=== PATIENT | female | born 1980 | race Hispanic/Latino ===

== ENCOUNTER → 2024-07-13 11:55 | Outpatient (REF) | payer OTHER, SELFPAY ==
[2024-07-13 12:53] LABS: Hematocrit 40.1 % (37.0-47.0); Hemoglobin 12.6 g/dL (12.0-16.0); Mean Corp Hgb Conc. 31.4 g/dL (33.0-37.0); Mean Corpuscular Hgb 26.3 pg (27.0-31.0); Mean Corpuscular Volume 83.5 fL (81.0-99.0); Mean Platelet Volume 10.9 fL (7.4-10.4); Platelet Count 297 10^3/uL (130-400); Red Cell Dist. Width 14.7 % (11.5-14.5); White Blood Cell Count 7.2 10^3/uL (4.8-10.8)
[2024-07-13 15:05] LABS: ALT (SGPT) 22 U/L (0-35); AST (SGOT) 21 U/L (14-36); Albumin 4.7 g/dl (3.5-5.0); Alkaline Phosphatase 83 U/L (38-126); Blood Urea Nitrogen 12 mg/dl (7-17); Calcium 9.7 mg/dl (8.4-10.2); Carbon Dioxide 24 mmol/L (22-30); Chloride 108 mmol/L (98-107); Glucose 95 mg/dl (70-99); HDL Cholesterol 46 mg/dl; LDL Cholesterol, Calculated 123 mg/dl; Potassium 5.1 mmol/L (3.5-5.1); Sodium 140 mmol/L (135-145); Total Bilirubin 0.3 mg/dl (0.2-1.3); Total Cholesterol 191 mg/dl (50-199); Total Protein 8.4 g/dl (6.3-8.2); Triglyceride 111 mg/dl (10-149); Very Low Density Lipoprotein 22 mg/dl (0-30); eGFR > 60.00
[2024-07-13 15:08] LABS: Vitamin D, 25-OH*** 36.6 ng/mL (30-80)
[2024-07-13 15:21] LABS: TSH Reflex To Free T4 3.89 uIU/ml (0.47-4.68)
[2024-07-15 05:35] LABS: H. pylori Breath Test Positive (Negative)
== END ==
LOC: CLINIC 11:55
PROVIDERS: ATTENDING PHYSICIAN Nurse Practitioner Adult Health
DX: Z00.00 Encounter for general adult medical examination without abnormal findings (principal)
CPT/HCPCS: 36415; 80053; 80061; 82306; 83013; 84443; 85027

== ENCOUNTER → 2024-07-27 11:15 | Outpatient (REF) | payer OTHER, SELFPAY | LOC: CLINIC 11:15 | PROVIDERS: ATTENDING PHYSICIAN Nurse Practitioner Adult Health | DX: Z12.4 Encounter for screening for malignant neoplasm of cervix (principal) | CPT/HCPCS: 87624 ==

== ENCOUNTER → 2024-08-29 06:40 | Outpatient (REF) | payer OTHER, SELFPAY | LOC: WDC 06:40 | PROVIDERS: ATTENDING PHYSICIAN Nurse Practitioner Adult Health | DX: Z12.31 Encounter for screening mammogram for malignant neoplasm of breast (principal) | CPT/HCPCS: 77063; 77067 ==

== ENCOUNTER → 2024-11-01 10:05 | Outpatient (REF) | payer OTHER, SELFPAY | LOC: CLINIC 10:05 | PROVIDERS: ATTENDING PHYSICIAN Obstetrics & Gynecology Gynecology | DX: N87.9 Dysplasia of cervix uteri, unspecified (principal) | CPT/HCPCS: 88305 ==

== ENCOUNTER → 2024-11-21 10:39 | Outpatient (REF) | payer OTHER, SELFPAY | LOC: REG 10:39 | PROVIDERS: ATTENDING PHYSICIAN Nurse Practitioner Adult Health | DX: A04.8 Other specified bacterial intestinal infections (principal) | CPT/HCPCS: 36415; 83013 ==